=== PATIENT | male | born 1930 | race Caucasian/White ===

== ENCOUNTER 2020-12-11 16:53 | Inpatient (IN) | payer MEDICARE, BC ==
[~2020-12-11 16:53] MED LIST: Iopamidol-370 76% 500 ML 1 ML ONE
[2020-12-11] MEDS ORDERED: Aspirin 300 MG Suppository ONE (17:01)
[2020-12-11 17:23] LABS: INR-International Normal Ratio 2.7; Prothrombin Time 29.4 sec (12.0-14.7)
[2020-12-11] MEDS ORDERED: Fentanyl 100 MCG/2 ML VIAL ONE (17:31)
--- NOTE | 2020-12-11 17:34 | RAD ---
PORTABLE CHEST: 12/11/20 HISTORY: Shortness of breath. Comparison 03/21/16 study. Heart size is within normal limits. There are atherosclerotic changes of the aorta. Lungs show chroni c change. No focal infiltrative process or signs of failure. Bones are diffusely demineralized. IMPRESSION: No active intrathoracic disease. POS: NAT
[2020-12-11 17:40] LABS: Bilirubin Negative (Negative); Blood, Urine Negative (Negative); Clarity Clear (Clear); Glucose, Urine (Dipstick) Normal (Negative); Ketone, Urine Negative (Negative); Leukocyte 75 Leu/uL (Negative); Nitrite Negative (Negative); Protein, Urine (Dipstick) 30 mg/dL (Neg-Trace); Specific Gravity, Urine 1.025 (1.002-1.036); Squamous Epithelial 0-3 HPF (0-3)
[2020-12-11 17:44] LABS: PTT Greater than 250.0 sec (22.9-36.1)
[2020-12-11 17:53] LABS: Calc. Creatinine Clearance 0 mL/min (70-130)
[2020-12-11 17:54] LABS: Bacteria/HPF 1+ HPF (None Seen)
[2020-12-11 18:06] LABS: CKMB 1.4 ng/mL (0-6.6)
--- NOTE | 2020-12-11 18:12 | CT ---
CT ANGIOGRAM THORAX WITH IV CONTRAST AND 3-D RECONSTRUCTIONS CLINICAL INDICATION: Right-sided chest pain/indigestion which started this morning. Abnormal EKG. COMPARISON: None FINDINGS: Pulmonary arteries: No filling defects are seen in the pulmonary arteries to suggest a pulmonary embo jasbir. Aorta: Not well opacified, the thoracic aorta is normal in caliber and tortuous. Vascular calcificati ons are seen in the thoracic aorta. Lungs: Biapical pleural parenchymal scarring is present which is partially calcified. Scattered linea r densities are seen posteriorly which may be related to atelectasis or scarring. There is a prominent pleural-based nodular density measuring 11 mm adjacent to the upper portion of t he major fissure in the right upper lobe. There are also a few mildly prominent pleural-based nodular densities along the major fissure further inferiorly largest measuring approximately 10 mm. A djacent reticulonodular densities are seen adjacent to the pleural-based nodular densities lower aspect of the major fissure. Exact etiology for these nodular densities is uncertain and short interv al follow-up is recommended. Small nodular density is seen along the left major fissure measuring 0.8 cm and may represent a small intrapleural lymph node. No pleural effusion is identified. Mediastinum: No enlarged mediastinal lymph nodes are seen by CT size criteria. Few small calcified me diastinal lymph nodes are present. Prominent coronary artery calcifications are visualized. Thyroid gland: Grossly normal in appearance. Osseous structures: Multilevel degenerative changes in the thoracic spine with vertebroplasty changes seen involving mid thoracic vertebral bodies. Mild wedge-shaped compression fractures are seen involving the T10, T12, and L1 vertebral bodies of indeterminate age, these fractures were probably p resent on radiographs in 2017. Chest wall: No abnormality visualized. Upper abdomen: Prominent vascular calcifications are seen in the region of the vascular structures in the upper abdomen. IMPRESSION: 1. Pleural-based nodular densities along the major fissure which cannot be characterized as a intrapl eural lymph nodes. Follow-up CT thorax in 4 months is recommended. 2. Scattered mildly prominent interstitial densities are seen posteriorly in the right lower lobe and lateral aspect of the right upper lobe which could relate to mild chronic lung changes, but infectious or inflammatory process is a possibility. 3. Mild chronic lung changes. 4. No CT evidence of a pulmonary embolus. 5. Prominent vascular calcifications. 6. Remote wedge-shaped compression fractures lower thoracic spine and involving the L1 vertebral body .
[2020-12-11] MEDS ORDERED: Azithromycin 500 MG VIAL ONE (19:01)
[2020-12-11 19:39] LABS: Chloride 104 mmol/L (98-107); Potassium 4.1 mmol/L (3.5-5.1)
[2020-12-11 19:40] LABS: Calcium 7.9 mg/dL (7.8-10.44)
--- NOTE | 2020-12-11 20:03 | PRG ---
DATE OF SERVICE: 12/11/2020 I spoke with friends, who are really functioning as Mr. Dixon's family and also have [id number]. The patient's friends discussed that Mr. Dixon has been going downhill the last few months, losing weight. He is in a fpc. He tried to go to assisted living, but he was unable do that and had to go back to the fpc. She indicates that the best options would be more comfort care. The patient is unable to really tell us about code status, right now is confused, disoriented, but the friends indicated that the code status would more likely be in line with the comfort care. She did not think that he would want chest compressions or intubation or aggressive care and in terms of that, we will try to treat him aggressively medically. Job ID: [id number]
[2020-12-11 20:10] LABS: Sodium 135 mmol/L (136-145)
[2020-12-11 20:11] LABS: Anion Gap 13 mmol/L (10-20); BUN (Urea Nitrogen) 23 mg/dL (8.4-25.7); Carbon Dioxide 22 mmol/L (23-31)
[2020-12-11 20:13] LABS: Bilirubin, Total 0.6 mg/dL (0.2-1.2); Glucose 112 mg/dL (83-110)
[2020-12-11 20:14] LABS: Protein, Total 5.9 g/dL (5.8-8.1)
[2020-12-11 20:15] LABS: Albumin 2.8 g/dL (3.4-4.8)
[2020-12-11 20:16] LABS: Globulin 3.1 g/dL (2.4-3.5)
[2020-12-11 20:17] LABS: ALT (SGPT) 36 U/L (8-55); AST (SGOT) 41 U/L (5-34); Alkaline Phosphatase 72 U/L (40-110); Lipase 127 U/L (8-78)
[2020-12-11] MEDS ORDERED: traMADol HCl 50 MG TAB PO PRN (21:12)
--- NOTE | 2020-12-11 21:16 | PDOC.HHP ---
Hospitalist HPI chest pain History of Present Illness: This is an 89-year-old male patient with a history of dementia, falls, back pa in, coronary disease status post stent GERD and stroke who was transferred from his custodial this afternoon account of chest pain. Patient was also recently independent at home however he had a recent fall requiring back surgery and due to inability to stay independently was moved to a custodial after. [facility]. In the custodial today he complained of chest pain as a result of which EMS was activated. EMS noted he had a large anterior and posterior MT status contacted ED and [facility] was activated. He was started on heparin drip route however on presentation chest pain had resolved and was relatively stable. Cardiology was consulted and was reevaluated. Noted his EKG showed reperfusion and plan was to continue on medical management. He was not sent for [facility]. On discussion with his familyadopted family, patient and family agree that no heroic measures will be taken and he would be DNR. At the time of my evaluation patient was comfortable in bed noted he had pain earlier but denied any other movement. He denied any shortness of breath palpitations or weakness. His initial labs did show hemoglobin of 7 however this was thought to be wrong. Repeat labs showed hemoglobin of 14.4, WBC 13.3 and platelets of 436. Chemistry showed sodium of 135, bicarb 22, creatinine 0.63, glucose 112 and troponin of 0.165. His BNP was 248. Chest x-ray showed no acute intrathoracic event. CT a showed pleural-based nodular densities with repeat CT recommended in 4 months. Findings were generally of chronic lung changes with no evidence of PE noted. In the ED received azithromycin aspirin 300 mg rectally and heparin. Hospitalist team was consulted to admit Allergies/Adverse Reactions: Allergy/AdvReac Type Severity Reaction Status Date / Time cephalexin Allergy Verified 01/28/20 01:52 latex Allergy Verified 01/28/20 01:52 levofloxacin [From Levaquin] Allergy Verified 01/28/20 01:52 Penicillins Allergy Verified 01/28/20 01:52 Gwnfwbz-Uhy-Aqy Reductase Allergy Verified 12/12/20 03:10 Inhibitor tramadol Allergy Verified 12/12/20 02:38 Home Medications: Medication Instructions Recorded Confirmed Type Acetaminophen W/ Codeine 1 tab PO Q4H PRN 12/12/20 12/12/20 History [Acetaminophen/Codeine #3] Ascorbic Acid [Vitamin C] 1 tab PO DAILY 12/12/20 12/12/20 History Cholecalciferol [Vitamin D3] 1 cap PO DAILY 12/12/20 12/12/20 History Cyanocobalamin (Vitamin B-12) 2 tab PO DAILY 12/12/20 12/12/20 History [B-12] Docusate [Colace] 1 cap PO DAILY 12/12/20 12/12/20 History Lactobacillus [Floranex] 1 tab PO DAILY 12/12/20 12/12/20 History Omeprazole 20 mg PO DAILY 12/12/20 12/12/20 History Vitamin E 400 units PO DAILY 12/12/20 12/12/20 History tiZANidine HCl [Tizanidine HCl] 4 mg PO Q6HR PRN 12/12/20 12/12/20 History Past History: PMHx:dementia, falls, back pain, coronary disease status post stent GERD and stroke PSHx:Bardiac stent, back surgery FHx:None of significance Social:Leaves in nursing facility, no smoking, alcohol or drug history Hospitalist HPI ROS Constitutional: denies: fever, chills, sweats Respiratory: denies: cough, shortness of breath, hemoptysis, SOB with excertion Cardiovascular: reports: chest pain. denies: palpitations, orthopnea Gastrointestinal: denies: nausea (Since resolved), vomiting, abdominal pain Musculoskeletal: reports: back pain, leg pain. denies: neck pain, shoulder pain Neurological: denies: weakness, numbness, incoordination All other systems reviewed; all pertinent +/- noted in HPI/Subj Hospitalist Exam General Appearance: awake alert Eye: PERRL, anicteric sclera Heart: RRR, no murmur, no gallops, no rubs Respiratory: CTAB, no wheezes, no rales, no ronchi Extremities: no cyanosis, no clubbing, no edema Neurological: cranial nerve grossly intact, no focal deficits Psychiatric: normal affect, A&O x 3 Psychiatric - other findings: Sometimes slightly disoriented however Hospitalist Results Result Diagrams: 12/14/20 02:53 12/14/20 02:53 Lab results: Laboratory Last Values WBC 5.2 thou/uL (4.8-10.8) 12/11/20 17:04 RBC 2.17 mill/uL (4.70-6.10) L 12/11/20 17:04 Hgb 7.0 g/dL (14.0-18.0) L 12/11/20 17:04 Hct 21.2 % (42.0-52.0) L 12/11/20 17:04 MCV 98.0 fL (78.0-98.0) 12/11/20 17:04 MCH 32.3 pg (27.0-31.0) H 12/11/20 17:04 MCHC 32.9 g/dL (32.0-36.0) 12/11/20 17:04 RDW 13.0 % (11.5-14.5) 12/11/20 17:04 Plt Count 243 thou/uL (130-400) 12/11/20 17:04 MPV 7.4 fL (7.4-10.4) 12/11/20 17:04 Neutrophils % 67.5 % (42.0-75.0) 12/11/20 17:04 Lymphocytes % 21.2 % (21.0-51.0) 12/11/20 17:04 Monocytes % 9.8 % (0.0-10.0) 12/11/20 17:04 Eosinophils % 1.2 % (0.0-10.0) 12/11/20 17:04 Basophils % 0.3 % (0.0-1.0) 12/11/20 17:04 Neutrophils # 3.5 thou/uL (1.40-6.50) 12/11/20 17:04 Lymphocytes # 1.1 thou/uL (1.20-3.40) L 12/11/20 17:04 Monocytes # 0.5 thou/uL (0.11-0.59) 12/11/20 17:04 Eosinophils # 0.1 thou/uL (0.0-0.7) 12/11/20 17:04 Basophils # 0.0 thou/uL (0.0-0.2) 12/11/20 17:04 PT 29.4 sec (12.0-14.7) H 12/11/20 17:04 INR 2.7 12/11/20 17:04 APTT Greater than 250.0 sec (22.9-36.1) H* 12/11/20 17:04 Sodium 135 mmol/L (136-145) L 12/11/20 17:04 Potassium 4.1 mmol/L (3.5-5.1) 12/11/20 17:04 Chloride 104 mmol/L (98-107) 12/11/20 17:04 Carbon Dioxide 22 mmol/L (23-31) L 12/11/20 17:04 Anion Gap 13 mmol/L (10-20) 12/11/20 17:04 BUN 23 mg/dL (8.4-25.7) 12/11/20 17:04 Creatinine 0.63 mg/dL (0.7-1.3) L 12/11/20 17:04 Estimated GFR (MDRD) Greater than 90 12/11/20 17:04 Glucose 112 mg/dL (83-110) H 12/11/20 17:04 Calcium 7.9 mg/dL (7.8-10.44) 12/11/20 17:04 Total Bilirubin 0.6 mg/dL (0.2-1.2) 12/11/20 17:04 AST 41 U/L (5-34) H 12/11/20 17:04 ALT 36 U/L (8-55) 12/11/20 17:04 Alkaline Phosphatase 72 U/L (40-110) 12/11/20 17:04 CK-MB (CK-2) 1.4 ng/mL (0-6.6) 12/11/20 17:04 Troponin I 0.165 ng/mL (< 0.028) H 12/11/20 17:04 B-Natriuretic Peptide 44.9 pg/mL (0-100) 12/11/20 17:04 Serum Total Protein 5.9 g/dL (5.8-8.1) 12/11/20 17:04 Albumin 2.8 g/dL (3.4-4.8) L 12/11/20 17:04 Globulin 3.1 g/dL (2.4-3.5) 12/11/20 17:04 Albumin/Globulin Ratio 0.9 g/dL (1.2-2.2) L 12/11/20 17:04 Lipase 127 U/L (8-78) H 12/11/20 17:04 TSH 3rd Generation 1.2399 uIU/mL (0.35-4.94) 12/11/20 17:04 Urine Color Yellow (Yellow) 12/11/20 17:14 Urine Clarity Clear (Clear) 12/11/20 17:14 Urine pH 6.0 (5.0-9.0) 12/11/20 17:14 Ur Specific [place] 1.025 (1.002-1.036) 12/11/20 17:14 Urine Protein 30 mg/dL (Neg-Trace) A 12/11/20 17:14 Urine Glucose (UA) Normal mg/dL (Negative) 12/11/20 17:14 Urine Ketones Negative mg/dL (Negative) 12/11/20 17:14 Urine Blood Negative (Negative) 12/11/20 17:14 Urine Nitrite Negative (Negative) 12/11/20 17:14 Urine Bilirubin Negative (Negative) 12/11/20 17:14 Urine Urobilinogen 2.0 mg/dL (Less than 2) A 12/11/20 17:14 Ur Leukocyte Esterase 75 Emma/uL (Negative) A 12/11/20 17:14 Urine RBC 4-6 HPF (0-3) A 12/11/20 17:14 Urine WBC 7-10 HPF (0-3) A 12/11/20 17:14 Ur Squamous Epith Cells 0-3 HPF (0-3) 12/11/20 17:14 Urine Bacteria 1+ HPF (None Seen) A 12/11/20 17:14 Hyaline Casts 4-6 LPF (0-3) A 12/11/20 17:14 Blood Type B POSITIVE 12/11/20 18:14 Antibody Screen NEGATIVE 12/11/20 18:05 Crossmatch See Detail 12/11/20 18:05 Hospitalist H&P A/P Plan: This is an 89-year-old male patient with a history of coronary artery disease, chronic low back pain who presents with chest pain diagnostic of MT. STEMI Continue on heparin Received aspirinwe will continue Monitoring telemetry Cardiology following -Chronic back pain s/p recent back surgery Current medications PT Dementia Chronic debility Patient has chronic health problems including dementia Have PT evaluate CODE STATUSDNR DVT prophylaxistherapeutic level
[2020-12-11 22:20] LABS: #Eosinphils 0.1 thou/uL (0.0-0.7); #Lymphocytes 0.9 thou/uL (1.20-3.40); #Monocytes 0.9 thou/uL (0.11-0.59); #Neutrophils 11.4 thou/uL (1.40-6.50); %Basophils 0.2 % (0.0-1.0); %Eosinophils 0.8 % (0.0-10.0); %Monocytes 6.4 % (0.0-10.0); %Neutrophils 85.6 % (42.0-75.0); Hemoglobin 14.4 g/dL (14.0-18.0); Mean Corpuscular HGB CONC 33.2 g/dL (32.0-36.0); Mean Corpuscular Hemoglobin 32.7 pg (27.0-31.0); Mean Corpuscular Volume 98.5 fL (78.0-98.0); Mean Platelet Volume 7.8 fL (7.4-10.4); Platelet Count 463 thou/uL (130-400); RBC Distribution Width 13.4 % (11.5-14.5); White Blood Cell (WBC) Count 13.3 thou/uL (4.8-10.8)
[2020-12-11 22:50] LABS: INR-International Normal Ratio 1.1; Prothrombin Time 14.6 sec (12.0-14.7)
[2020-12-11 22:55] LABS: PTT 157.9 sec (22.9-36.1)
[2020-12-11] MEDS ORDERED: EPINEPHrine 1 MG/10 ML Abboject SYRINGE ONE (23:17)
[2020-12-11 23:30] LABS: CKMB 12.3 ng/mL (0-6.6)
--- NOTE | 2020-12-12 00:42 | CON ---
DATE OF CONSULTATION: 12/11/2020 REASON FOR CONSULTATION: Acute myocardial infarction. HISTORY OF PRESENT ILLNESS: Mr. Dixon is an 89-year-old gentleman. He was brought from a local halfway. The patient apparently was recently diagnosed with COVID near the end of last month by one verbal report, it was from the and today is the 11 of December. The patient was found to be having an acute myocardial infarction and was brought to this institution. The initial EKG showed severe ST-elevation. He was given heparin intravenously. The ST segments have gone back to baseline after he received heparin. The patient is not having chest pain now. This "hurts all over." The past history is obtained mostly from the medical records. He is unable to give me much history. He says he just hurts all over. The previous notes indicate that he does have coronary artery disease with a stent placed in 2010. The details of that are not available. Also has a history of "small stroke". His overall health is unknown to me. There is also a history of a compression fracture. He was recently in the emergency room with urinary tract infection, which was treated. Medications at this point are not known. SOCIAL HISTORY: The patient tells me he does not have any family, "he is a [place] war that is all he tells me." ALLERGIES: TO CEPHALEXIN, LATEX, LEVOFLOXACIN, AND PENICILLIN. PHYSICAL EXAMINATION: GENERAL: This is a really very underweight, cachectic appearing gentleman, looks chronically ill. VITAL SIGNS: His blood pressure was in the 100 systolic range. His pulse in the 80s. NECK: Veins are not distended. LUNGS: Clear anteriorly, laterally. CARDIAC: I do not hear murmur, rub, or gallop. ABDOMEN: Underweight. EXTREMITIES: Warm and dry. There is no clubbing, cyanosis, or edema. He does have femoral pulses. PERTINENT LABORATORY DATA: His hemoglobin is 7, it was recently 16 just a few days ago. EKG showed ST-elevation initially in inferior murillo with ST-depression in the anterior murillo compatible with a large infarction. Follow up EKG shows marked improvement in the ST segments. ASSESSMENT: 1. Acute myocardial infarction, it appears likely that he reperfused with heparin. 2. Severe anemia. 3. Recent COVID infection. 4. Appears cachectic, appears chronically ill. PLAN: During this dictation actually it has just been texted if there is a family available, can get further guidance about code status. He is on heparin. He will receive packed red blood cells. Prognosis guarded to poor in this unfortunate elderly gentleman with multiple medical problems. Job ID: [id number]
[2020-12-12 02:08] VITALS: BMI 14.9
[2020-12-12 02:21] LABS: #Eosinphils 0.1 thou/uL (0.0-0.7); #Lymphocytes 1.6 thou/uL (1.20-3.40); #Monocytes 0.8 thou/uL (0.11-0.59); #Neutrophils 6.9 thou/uL (1.40-6.50); %Basophils 0.3 % (0.0-1.0); %Eosinophils 0.7 % (0.0-10.0); %Monocytes 8.8 % (0.0-10.0); %Neutrophils 73.2 % (42.0-75.0); Mean Corpuscular HGB CONC 33.3 g/dL (32.0-36.0); Mean Corpuscular Hemoglobin 32.1 pg (27.0-31.0); Mean Corpuscular Volume 96.3 fL (78.0-98.0); Mean Platelet Volume 7.4 fL (7.4-10.4); Platelet Count 503 thou/uL (130-400); RBC Distribution Width 13.4 % (11.5-14.5); Red Blood Cell (RBC) Count 4.68 mill/uL (4.70-6.10); White Blood Cell (WBC) Count 9.5 thou/uL (4.8-10.8)
[2020-12-12] MEDS ORDERED: Heparin 10,000 UNITS/ 10 ML VIAL SLOW IVP SCH (02:45)
[2020-12-12] MEDS ORDERED: Heparin 25,000 units/D5W 500 ML IVPB SCH (02:45)
[2020-12-12 03:02] LABS: Anion Gap 14 mmol/L (10-20); BUN (Urea Nitrogen) 20 mg/dL (8.4-25.7); Calc. Creatinine Clearance 65 mL/min (70-130); Calcium 8.6 mg/dL (7.8-10.44); Carbon Dioxide 23 mmol/L (23-31); Chloride 104 mmol/L (98-107); Glucose 99 mg/dL (83-110); Potassium 3.9 mmol/L (3.5-5.1); Sodium 137 mmol/L (136-145)
[2020-12-12] MEDS ORDERED: Acetaminophen 325 MG TAB PO PRN (03:08)
[2020-12-12 06:38] LABS: SARS-CoV-2 PCR by NAA DETECTED (NotDetected)
[2020-12-12] MEDS: Aspirin 81 mg Enteric Coated Tablet PO SCH (08:16)
[2020-12-12] MEDS ORDERED: Clopidogrel Bisulfate 300 MG TAB PO SCH (09:00)
[2020-12-12] MEDS: Enoxaparin Sodium 60 MG/0.6 ML SYRINGE SC SCH ×2 (09:40→20:14)
[2020-12-12] MEDS: Famotidine 20 MG TAB PO SCH ×2 (09:40→20:15)
--- NOTE | 2020-12-12 11:42 | PQF ---
CLINICAL DOCUMENTATION CLARIFICATION FORM: Dear Dr. LEI FLORES Date: 12-12-20 Please exercise your independent, professional judgment in responding to the clarification form. Clinical indicators are provided on the bottom of this form for your review. Please check appropriate box(es): [X ] Protein Calorie Malnutrition: [ ] Mild [ X ] Moderate [ ] Severe [ ] Other Malnutrition (please specify) [ ] Other diagnosis [ ] Unable to determine In addition, please specify: Present on Admission (POA): [ X] Yes [ ] No [ ] Unable to determine For continuity of documentation, please document condition throughout progress notes and discharge summary. Thank You. To be completed by CDI/Coding staff for physician review: CLINICAL INDICATORS - SIGNS / SYMPTOMS / LABS / RESULTS AND LOCATION IN MR: CONSULT NOTE DR. JOY 12-11-20: HAS BEEN [facility] THE LAST FEW MONTHS, LOSING WEIGHT. HE IS IN A [facility] CONSULT NOTE DR. JOY 12-11-20: ACUTE PA, SEVERE ANEMIA, RECENT COVID INFECTION, APPEARS CACHECTIC, APPEARS CHRONICALLY ILL. JR. SYSTEMS ADMINISTRATOR CONSULT 12-12-20: Patient is COVID+. Ns home resident with dementia, and A&Ox3. Per admit records, noted 10% weight loss in 4 years. No recent wt hx documented to compare. JR. SYSTEMS ADMINISTRATOR CONSULT 12-12-20: BMI: 14.9 RISK FACTORS / RESULTS AND LOCATION IN MR: CONSULT NOTE DR. JOY 12-11-20: HAS BEEN [facility] THE LAST FEW MONTHS, LOSING WEIGHT. HE IS IN A [facility] TREATMENT / RESULTS AND LOCATION IN MR: JR. SYSTEMS ADMINISTRATOR CONSULT 12-12-20: 1. 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 2. Recommend Ensure Enlive TID. 3. Monitor labs and electrolytes. Moderate Malnutrition (in acute illness) Energy Intake: <75% of estimated energy requirement for > 7 days Weight Loss: 1-2%/1 week; 5%/ 1 month; 7.5%/3 months Other: mild body fat loss; mild muscle mass loss; mild fluid accumulation; Severe Malnutrition (in acute illness) Energy Intake: = 50% of estimated energy requirement for = 5 days Weight Loss: >2%/1 week; >5%/1 month; >7.5%/3 months Other: moderate body fat loss; moderate muscle mass loss; moderate- severe fluid accumulation; measurably reduced manager branch strength Moderate Malnutrition (in chronic illness) Energy Intake: <75% of estimated energy requirement for =1 month Weight Loss: 5%/1 month; 7.5%/3 months; 10%/6 months; 20%/1 year Other: mild body fat loss; mild muscle mass loss; mild fluid accumulation Severe Malnutrition (in chronic illness) Energy Intake: =75% of estimated energy requirement for =1 month Weight Loss: >5%/1 month; >7.5%/3 months; >10%/6 months; >20%/1 year Other: severe body fat loss; severe muscle mass loss; severe fluid accumulation; measurably reduced manager branch strength CDS Signature: Criss De La Torre Phone #: [phone] Date: 12-12-20 This is a permanent part of the Medical Record [facility]
--- NOTE | 2020-12-12 14:00 | PDOC.HOSPP ---
- Subjective Encounter Date: 12/12/20 Encounter Time: 13:58 Subjective: Mr. Dixon was seen today in follow-up of NSTEMI. He does not have any complaints. He denies chest pain or trouble breathing. He says he just wants to get out of this hospital and be with family. - Objective Vital Signs & Weight: Vital Signs (12 hours) Temp Pulse Resp BP Pulse Ox 12/12/20 12:15 96.7 F L 69 18 112/57 L 100 12/12/20 08:20 97.8 F 76 16 139/70 100 12/12/20 08:16 100 12/12/20 04:00 98.3 F 62 16 142/70 H 100 Weight Admit Weight 113 lb Weight 113 lb Result Diagrams: 12/12/20 02:11 12/12/20 02:11 Hospitalist ROS - Medication Medications: Active Medications Generic Name Dose Route Start Last Admin Trade Name Freq PRN Reason Stop Dose Admin Aspirin 81 mg 12/12/20 09:00 12/12/20 08:16 Aspirin 81 Mg Enteric Coated Tablet PO 81 mg DAILY GEOFFREY Administration Enoxaparin Sodium 50 mg 12/12/20 09:00 12/12/20 09:40 Enoxaparin Sodium 60 Mg/0.6 Ml Syringe SC 50 mg 0900,2100 GEOFFREY Administration Famotidine 20 mg 12/12/20 09:00 12/12/20 09:40 Famotidine 20 Mg Tab PO 20 mg BID GEOFFREY Administration Hospitalist Exam Vitals: Vital Signs (12 hours) Temp Pulse Resp BP Pulse Ox 12/12/20 12:15 96.7 F L 69 18 112/57 L 100 12/12/20 08:20 97.8 F 76 16 139/70 100 12/12/20 08:16 100 12/12/20 04:00 98.3 F 62 16 142/70 H 100 Weight Admit Weight 113 lb Weight 113 lb General Appearance: NAD General - other findings: very thin and frail in appearance Eye: PERRL, anicteric sclera Heart: RRR, no murmur, no gallops, no rubs, normal peripheral pulses Respiratory: CTAB, no wheezes, no rales, no ronchi, normal chest expansion, no tachypnea, normal percussion Gastrointestinal: soft, non-tender, non-distended, normal bowel sounds, no palpable masses Extremities: no cyanosis, no edema Hosp A/P (1) NSTEMI (non-ST elevated myocardial infarction) Code(s): I21.4 - NON-ST ELEVATION (NSTEMI) MYOCARDIAL INFARCTION Status: Acute (2) CAD (coronary artery disease) Code(s): I25.10 - ATHSCL HEART DISEASE OF [place] CORONARY ARTERY W/O ANG PCTRS Status: Chronic (3) Compression fracture of vertebra Code(s): M48.50XA - COLLAPSED VERTEBRA, NEC, SITE UNSP, INIT Status: Chronic (4) Physical deconditioning Code(s): R53.81 - OTHER MALAISE Status: Chronic - Plan * NSTEMI and CAD- agree with conservative management, given his advanced age and frail status * Continue Plavix aspirin Heparin , and consider adding a beta-arthur * Chronic back pain- from vertebral fractures- continue conservative management * Palliative Care Consult
[2020-12-12] MEDS: Carvedilol 3.125 MG TAB PO SCH (18:03)
[2020-12-12] MEDS ORDERED: Atorvastatin Calcium 10 MG TAB PO SCH (21:00)
[2020-12-13] MEDS: Enoxaparin Sodium 60 MG/0.6 ML SYRINGE SC SCH ×2 (07:58→20:24)
[2020-12-13] MEDS: Carvedilol 3.125 MG TAB PO SCH ×2 (07:58→16:11)
[2020-12-13] MEDS: Clopidogrel Bisulfate 75 MG TAB PO SCH (07:59)
[2020-12-13] MEDS: Famotidine 20 MG TAB PO SCH ×2 (07:59→20:24)
[2020-12-13] MEDS: Aspirin 81 mg Enteric Coated Tablet PO SCH (07:59)
--- NOTE | 2020-12-13 11:20 | PDOC.HOSPP ---
- Subjective Encounter Date: 12/13/20 Subjective: seems to be doing well, he was working with PT. - Objective Vital Signs & Weight: Vital Signs (12 hours) Temp Pulse Resp BP Pulse Ox 12/13/20 08:00 96.5 F L 71 19 167/81 H 97 12/13/20 03:54 97.6 F 66 14 141/73 H 100 12/13/20 00:00 97.1 F L 70 16 136/61 97 Weight Admit Weight 113 lb Weight 113 lb I&O: 12/12/20 12/13/20 12/14/20 06:59 06:59 06:59 Intake Total 540 Output Total 1125 Balance -585 Result Diagrams: 12/12/20 02:11 12/12/20 02:11 Hospitalist ROS - Medication Medications: Active Medications Generic Name Dose Route Start Last Admin Trade Name Freq PRN Reason Stop Dose Admin Aspirin 81 mg 12/12/20 09:00 12/13/20 07:59 Aspirin 81 Mg Enteric Coated Tablet PO 81 mg DAILY GEOFFREY Administration Carvedilol 1.56 mg 12/12/20 17:00 12/13/20 07:58 Carvedilol 3.125 Mg Tab PO 1.56 mg BID-WM GEOFFREY Administration Clopidogrel Bisulfate 75 mg 12/13/20 09:00 12/13/20 07:59 Clopidogrel Bisulfate 75 Mg Tab PO 75 mg DAILY GEOFFREY Administration Enoxaparin Sodium 50 mg 12/12/20 09:00 12/13/20 07:58 Enoxaparin Sodium 60 Mg/0.6 Ml Syringe SC 50 mg 0900,2100 GEOFFREY Administration Famotidine 20 mg 12/12/20 09:00 12/13/20 07:59 Famotidine 20 Mg Tab PO 20 mg BID GEOFFREY Administration Hospitalist Exam Vitals: Vital Signs (12 hours) Temp Pulse Resp BP Pulse Ox 12/13/20 08:00 96.5 F L 71 19 167/81 H 97 12/13/20 03:54 97.6 F 66 14 141/73 H 100 12/13/20 00:00 97.1 F L 70 16 136/61 97 Weight Admit Weight 113 lb Weight 113 lb General Appearance: NAD Eye: PERRL ENT: normocephalic atraumatic, no oropharyngeal lesions Neck: supple, symmetric, no JVD Heart: RRR, no murmur, no gallops Respiratory: CTAB, no wheezes, no rales, no ronchi Extremities: no cyanosis Skin: normal turgor Hosp A/P (1) NSTEMI (non-ST elevated myocardial infarction) Code(s): I21.4 - NON-ST ELEVATION (NSTEMI) MYOCARDIAL INFARCTION Status: Acute (2) CAD (coronary artery disease) Code(s): I25.10 - ATHSCL HEART DISEASE OF [place] CORONARY ARTERY W/O ANG PCTRS Status: Chronic (3) Compression fracture of vertebra Code(s): M48.50XA - COLLAPSED VERTEBRA, NEC, SITE UNSP, INIT Status: Chronic (4) Physical deconditioning Code(s): R53.81 - OTHER MALAISE Status: Chronic - Plan plan for today 2/6 patient seemed to be doing better, he is on Lovenox BID, coreg, ASA and Plavix. BP a bit up, I will keep on monitoring. we will continue to follow Cardiology recommendation.
--- NOTE | 2020-12-13 18:40 | EKG ---
Test Reason : Blood Pressure : / mmHG Vent. Rate : 073 BPM Atrial Rate : 073 BPM P-R Int : 150 ms QRS Dur : 090 ms QT Int : 422 ms P-R-T Axes : 036 021 072 degrees QTc Int : 464 ms Normal sinus rhythm Low voltage QRS Cannot rule out Anterior infarct , age undetermined Abnormal ECG Confirmed by JUANA ROSAS ([id number]), commissioning editor CAL LOPEZ ([id number]) on 12/13/2020 6:40:25 PM Referred By: Confirmed By:JUANA ROSAS
[2020-12-14 03:08] LABS: Hemoglobin 15.8 g/dL (14.0-18.0); Platelet Count 544 thou/uL (130-400)
[2020-12-14 03:09] LABS: #Basophils 0.1 thou/uL (0.0-0.2); #Eosinphils 0.2 thou/uL (0.0-0.7); #Lymphocytes 1.2 thou/uL (1.20-3.40); #Monocytes 0.9 thou/uL (0.11-0.59); #Neutrophils 4.4 thou/uL (1.40-6.50); %Eosinophils 3.4 % (0.0-10.0); %Lymphocytes 18.1 % (21.0-51.0); %Monocytes 12.8 % (0.0-10.0); %Neutrophils 64.7 % (42.0-75.0); Hemoglobin 15.5 g/dL (14.0-18.0); Mean Corpuscular HGB CONC 32.9 g/dL (32.0-36.0); Mean Corpuscular Hemoglobin 31.7 pg (27.0-31.0); Mean Corpuscular Volume 96.4 fL (78.0-98.0); Mean Platelet Volume 7.7 fL (7.4-10.4); Platelet Count 531 thou/uL (130-400); RBC Distribution Width 13.4 % (11.5-14.5); Red Blood Cell (RBC) Count 4.88 mill/uL (4.70-6.10); White Blood Cell (WBC) Count 6.8 thou/uL (4.8-10.8)
[2020-12-14 03:36] LABS: Anion Gap 11 mmol/L (10-20); BUN (Urea Nitrogen) 16 mg/dL (8.4-25.7); Calc. Creatinine Clearance 64 mL/min (70-130); Calcium 8.8 mg/dL (7.8-10.44); Carbon Dioxide 26 mmol/L (23-31); Chloride 103 mmol/L (98-107); Glucose 92 mg/dL (83-110); Potassium 4.7 mmol/L (3.5-5.1); Sodium 135 mmol/L (136-145)
[2020-12-14 03:43] LABS: Critical Call Chem Troponin I RESULT DECREASING; Troponin I 1.126 ng/mL (< 0.028)
[2020-12-14] MEDS: Famotidine 20 MG TAB PO SCH ×2 (09:44→20:33)
[2020-12-14] MEDS: Carvedilol 3.125 MG TAB PO SCH ×2 (09:44→18:42)
[2020-12-14] MEDS: Aspirin 81 mg Enteric Coated Tablet PO SCH (09:45)
[2020-12-14] MEDS: Enoxaparin Sodium 60 MG/0.6 ML SYRINGE SC SCH ×2 (09:45→20:33)
[2020-12-14] MEDS: Clopidogrel Bisulfate 75 MG TAB PO SCH (09:45)
--- NOTE | 2020-12-14 12:52 | PDOC.HOSPP ---
- Subjective Encounter Date: 12/14/20 Subjective: feels well - Objective Vital Signs & Weight: Vital Signs (12 hours) Temp Pulse Resp BP Pulse Ox 12/14/20 12:00 97.3 F L 80 18 138/78 96 12/14/20 07:54 95.9 F L 80 22 H 134/60 100 12/14/20 04:00 98.5 F 70 16 136/67 98 Weight Admit Weight 113 lb Weight 113 lb I&O: 12/13/20 12/14/20 12/15/20 06:59 06:59 06:59 Intake Total 540 540 Output Total 1125 450 Balance -585 90 Result Diagrams: 12/14/20 02:53 12/14/20 02:53 Hospitalist ROS - Medication Medications: Active Medications Generic Name Dose Route Start Last Admin Trade Name Freq PRN Reason Stop Dose Admin Aspirin 81 mg 12/12/20 09:00 12/14/20 09:45 Aspirin 81 Mg Enteric Coated Tablet PO 81 mg DAILY GEOFFREY Administration Carvedilol 1.56 mg 12/12/20 17:00 12/14/20 09:44 Carvedilol 3.125 Mg Tab PO 1.56 mg BID-WM GEOFFREY Administration Clopidogrel Bisulfate 75 mg 12/13/20 09:00 12/14/20 09:45 Clopidogrel Bisulfate 75 Mg Tab PO 75 mg DAILY GEOFFREY Administration Enoxaparin Sodium 50 mg 12/12/20 09:00 12/14/20 09:45 Enoxaparin Sodium 60 Mg/0.6 Ml Syringe SC 12/15/20 09:00 50 mg 0900,2100 GEOFFREY Administration Famotidine 20 mg 12/12/20 09:00 12/14/20 09:44 Famotidine 20 Mg Tab PO 20 mg BID GEOFFREY Administration Hospitalist Exam Vitals: Vital Signs (12 hours) Temp Pulse Resp BP Pulse Ox 12/14/20 12:00 97.3 F L 80 18 138/78 96 12/14/20 07:54 95.9 F L 80 22 H 134/60 100 12/14/20 04:00 98.5 F 70 16 136/67 98 Weight Admit Weight 113 lb Weight 113 lb General Appearance: NAD Eye: PERRL, anicteric sclera ENT: normocephalic atraumatic, no oropharyngeal lesions Neck: supple, symmetric, no JVD, no thyromegaly Heart: RRR, no murmur, no gallops, no rubs Respiratory: CTAB, no wheezes, no rales, no ronchi Gastrointestinal: soft, non-tender, non-distended Extremities: no cyanosis, no clubbing Hosp A/P (1) NSTEMI (non-ST elevated myocardial infarction) Code(s): I21.4 - NON-ST ELEVATION (NSTEMI) MYOCARDIAL INFARCTION Status: Acute (2) CAD (coronary artery disease) Code(s): I25.10 - ATHSCL HEART DISEASE OF [place] CORONARY ARTERY W/O ANG PCTRS Status: Chronic (3) Compression fracture of vertebra Code(s): M48.50XA - COLLAPSED VERTEBRA, NEC, SITE UNSP, INIT Status: Chronic (4) Physical deconditioning Code(s): R53.81 - OTHER MALAISE Status: Chronic - Plan plan for today 12/13 patient seemed to be doing better, he is on Lovenox BID, coreg, ASA and Plavix. BP a bit up, I will keep on monitoring. we will continue to follow Cardiology recommendation. plan for today 12/14 Patient seemed to be doing the same, I spoke with him about needing a heart cath but he seems to be in denial, I spoke with his MPOA and it seems that he does not want anything to be done and a referral for home hospice was initiated. When ready he will go with hospice.He probably will need to stay in isolation for another week approximately since he was diagnosed with Covid 19 on Dec 06. In am we can stop his Lovenox, and continue with Coreg and aspirin, and Plavix.
[2020-12-15] MEDS: Aspirin 81 mg Enteric Coated Tablet PO SCH (09:18)
[2020-12-15] MEDS: Carvedilol 3.125 MG TAB PO SCH ×2 (09:18→16:30)
[2020-12-15] MEDS: Famotidine 20 MG TAB PO SCH ×2 (09:19→21:00)
[2020-12-15] MEDS: Clopidogrel Bisulfate 75 MG TAB PO SCH (09:19)
[2020-12-15] MEDS: Enoxaparin Sodium 60 MG/0.6 ML SYRINGE SC SCH (09:19)
[2020-12-15 11:18] LABS: Anion Gap 10 mmol/L (10-20); BUN (Urea Nitrogen) 17 mg/dL (8.4-25.7); Calc. Creatinine Clearance 60 mL/min (70-130); Calcium 8.8 mg/dL (7.8-10.44); Carbon Dioxide 30 mmol/L (23-31); Chloride 101 mmol/L (98-107); Glucose 111 mg/dL (83-110); Potassium 3.6 mmol/L (3.5-5.1); Sodium 137 mmol/L (136-145)
--- NOTE | 2020-12-15 15:43 | PDOC.HOSPP ---
- Subjective Encounter Date: 12/15/20 Subjective: Well-appearing in no acute distress - Objective Vital Signs & Weight: Vital Signs (12 hours) Temp Pulse Resp BP Pulse Ox 12/15/20 13:00 97.6 F 89 17 94/54 L 100 12/15/20 09:00 97.3 F L 96 18 108/53 L 100 12/15/20 08:00 98 12/15/20 04:24 97.9 F 67 16 136/60 98 Weight Admit Weight 113 lb Weight 113 lb I&O: 12/14/20 12/15/20 12/16/20 06:59 06:59 06:59 Intake Total 540 120 Output Total 450 800 Balance 90 -680 Result Diagrams: 12/14/20 02:53 12/15/20 10:43 Hospitalist ROS - Medication Medications: Active Medications Generic Name Dose Route Start Last Admin Trade Name Freq PRN Reason Stop Dose Admin Aspirin 81 mg 12/12/20 09:00 12/15/20 09:18 Aspirin 81 Mg Enteric Coated Tablet PO 81 mg DAILY GEOFFREY Administration Carvedilol 3.125 mg 12/14/20 17:00 12/15/20 09:18 Carvedilol 3.125 Mg Tab PO 3.125 mg BID-WM GEOFFREY Administration Clopidogrel Bisulfate 75 mg 12/13/20 09:00 12/15/20 09:19 Clopidogrel Bisulfate 75 Mg Tab PO 75 mg DAILY GEOFFREY Administration Famotidine 20 mg 12/12/20 09:00 12/15/20 09:19 Famotidine 20 Mg Tab PO 20 mg BID GEOFFREY Administration Hospitalist Exam Vitals: Vital Signs (12 hours) Temp Pulse Resp BP Pulse Ox 12/15/20 13:00 97.6 F 89 17 94/54 L 100 12/15/20 09:00 97.3 F L 96 18 108/53 L 100 12/15/20 08:00 98 12/15/20 04:24 97.9 F 67 16 136/60 98 Weight Admit Weight 113 lb Weight 113 lb General Appearance: NAD Eye: PERRL ENT: normocephalic atraumatic Neck: supple, symmetric, no JVD Heart: RRR, no murmur, no gallops Respiratory: CTAB, no wheezes, no rales Gastrointestinal: soft, non-tender, non-distended Hosp A/P (1) NSTEMI (non-ST elevated myocardial infarction) Code(s): I21.4 - NON-ST ELEVATION (NSTEMI) MYOCARDIAL INFARCTION Status: Acute (2) CAD (coronary artery disease) Code(s): I25.10 - ATHSCL HEART DISEASE OF [place] CORONARY ARTERY W/O ANG PCTRS Status: Chronic (3) Compression fracture of vertebra Code(s): M48.50XA - COLLAPSED VERTEBRA, NEC, SITE UNSP, INIT Status: Chronic (4) Physical deconditioning Code(s): R53.81 - OTHER MALAISE Status: Chronic - Plan plan for today 12/13 patient seemed to be doing better, he is on Lovenox BID, coreg, ASA and Plavix. BP a bit up, I will keep on monitoring. we will continue to follow Cardiology recommendation. plan for today 12/14 Patient seemed to be doing the same, I spoke with him about needing a heart cath but he seems to be in denial, I spoke with his MPOA and it seems that he does not want anything to be done and a referral for home hospice was initiated. When ready he will go with hospice.He probably will need to stay in isolation for another week approximately since he was diagnosed with Covid 19 on Dec 06. In am we can stop his Lovenox, and continue with Coreg and aspirin, and Plavix. Plan for today 12/15 Patient will be going tomorrow with home hospice. For the past 24 hours his blood pressure has been on the low side, when I went to see him the cardiology nurse practitioner was talking to him and we had a discussion about adjustment of his blood pressure medication which she will do. Lovenox was stopped today, continue same management anticipating discharge t omorrow in the morning.
--- NOTE | 2020-12-15 15:52 | PDOC.CPN ---
- Subjective Date: 12/15/20 Time: 14:00 Interval history: No overnight events, patient sitting up in bed talking, just got out of the shower. He denies any chest pain or shortness of breath, his BP has been running on the low side. He denies any dizziness. - Review of Systems General: denies: fever/chills, weight/appetite/sleep changes, night sweats, fat igue Respiratory: denies: cough, congestion, shortness of breath, exercise intolerance Cardiovascular: denies: chest pain, palpitation, edema, paroxysmal nocturnal dyspnea, orthopnea Gastrointestinal: denies: nausea, vomiting, diarrhea, constipation, abd pain, GI bleeding Musculoskeletal: denies: pain, tenderness, stiffness, swelling, arthritis/arthralgias Neurological: denies: numbness, syncope, seizure, weakness - Objective Allergies/Adverse Reactions: Allergies Allergy/AdvReac Type Severity Reaction Status Date / Time cephalexin Allergy Verified 01/28/20 01:52 latex Allergy Verified 01/28/20 01:52 levofloxacin [From Levaquin] Allergy Verified 01/28/20 01:52 Penicillins Allergy Verified 01/28/20 01:52 Kvmjixo-Qyh-Aaj Reductase Allergy Verified 12/12/20 03:10 Inhibitor tramadol Allergy Verified 12/12/20 02:38 Visit Medications: Current Medications Acetaminophen (Acetaminophen 325 Mg Tab) 650 mg PO Q4H PRN PRN Reason: Headache/Fever or Pain Aspirin (Aspirin 81 Mg Enteric Coated Tablet) 81 mg PO DAILY [facility] Last Admin: 12/15/20 09:18 Dose: 81 mg Documented by: Carvedilol (Carvedilol 3.125 Mg Tab) 3.125 mg PO BID-[facility] Last Admin: 12/15/20 09:18 Dose: 3.125 mg Documented by: Clopidogrel Bisulfate (Clopidogrel Bisulfate 75 Mg Tab) 75 mg PO DAILY [facility] Last Admin: 12/15/20 09:19 Dose: 75 mg Documented by: Famotidine (Famotidine 20 Mg Tab) 20 mg PO BID [facility] Last Admin: 12/15/20 09:19 Dose: 20 mg Documented by: Vital Signs & Weight: Vital Signs Temp Pulse Resp BP Pulse Ox 12/15/20 13:00 97.6 F 89 17 94/54 L 100 12/15/20 09:00 97.3 F L 96 18 108/53 L 100 12/15/20 08:00 98 12/15/20 04:24 97.9 F 67 16 136/60 98 Admit Weight 113 lb Weight 113 lb - Physical Exam General: alert & oriented x3, appears well, no apparent distress Neck: no bruit Cardiac: regular rate and rhythm, no murmur Lungs: clear to auscultation, normal breath sounds, no wheeze, rales, rhonchi Neuro: grossly intact Abdomen: active bowel sounds, soft, non-tender Extremities: no cyanosis, no clubbing, no edema, 2+ Posterior Tibial, 2+ Dorsalis Pedus Skin: clear Musculoskeletal: normal range of motion, other (back pain, vertebral compression fracture) - Labs Result Diagrams: 12/14/20 02:53 12/15/20 10:43 Troponin/CKMB CK-MB (CK-2) 12.3 ng/mL (0-6.6) H* 12/11/20 22:08 Troponin I 1.126 ng/mL (< 0.028) H* 12/14/20 02:53 - EKG Interpretation EKG Method: Telemetry EKG: sinus rhythm - Assessment/Plan Assessment/Plan: 1. Acute myocardial infarction: reprofused with Heparin, patient declined LHC at this time 2. Coronary artery disease: he is on Aspirin, Plavix, and Coreg, will lower dose of Coreg due to hypotension 3. Vertebral compression fracture 4. Physical deconditioning: home with hospice tomorrow From a cardiac stanpoint, Mr. Dixon has declined heart catheterization at this time. Will continue with Aspirin, Plavix and Coreg, we will sign off at this time. He can follow-up as an outpatient in 4 weeks. Pt. seen and eval. by me. I agree with the A/P by the [employer]ED IN[employer]E PORTFOLIO MANAGER. I had a long discussion with him about a cardiac cath and he declines. I did tell him that if he returns with another episode like this then he really would need a cath. I will sign off, if any cardiac issues I will be happy to see him again. At this time I will sign off. juanito
[2020-12-16] MEDS: Aspirin 81 mg Enteric Coated Tablet PO SCH (09:11)
[2020-12-16] MEDS: Carvedilol 3.125 MG TAB PO SCH (09:11)
[2020-12-16] MEDS: Famotidine 20 MG TAB PO SCH (09:12)
[2020-12-16] MEDS: Clopidogrel Bisulfate 75 MG TAB PO SCH (09:12)
--- NOTE | 2020-12-16 09:45 | PDOC.DS.DS ---
Provider Date of Admission: 12/11/20 21:16 Date of Discharge: 12/16/20 Admitting Provider: Eren Whitney MD Consultations: Cardiology Primary Care Physician: AIDA HANNAH MD Course Hospital Course: This is an 89-year-old male patient with a history of dementia, falls, back pain, coronary disease status post stent GERD and stroke who was transferred from his detention this afternoon account of chest pain. Patient was also recently independent at home however he had a recent fall requiring back surgery and due to inability to stay independently was moved to a detention after[facility]. In the detention he complained of chest pain as a result of which EMS was activated. EMS noted he had a large anterior and posterior CT status contacted ED and Display Designer was activated. He was started on heparin drip route however on presentation chest pain had resolved and was relatively stable. Cardiology was consulted and was reevaluated. Noted his EKG showed reperfusion and plan was to continue on medical management. Patient serology was positive for COVID-19 but without any pulmonary symptoms. During his stay he was started on full dose Lovenox, Coreg, aspirin, Plavix. He was a bit hypotensive so Coreg was lowered, he was seen by cardiology and patient declined LHC, I had a long discussion with his medical power of tax associate attorney and since patient does not want any intervention it was best for him to go with home hospice. I will provide him with prescription for Coreg and Plavix. Resuscitation Status: 12/11/20 21:08 Resuscitation Status Routine Resuscitation Status: DNAR: NO Resuscitation Discussed with: Patient Lab Results: 12/14/20 02:53 12/15/20 10:43 Abnormal Lab Results - Last 48 hrs 12/15/20 10:43: Creatinine 0.61 L Microbiology - Entire Visit 12/11/20 17:14 Urine Straight Catheter Urine Culture - Final NO GROWTH AT 48 HOURS 12/11/20 18:50 Venous blood - Left Hand Blood Culture - Preliminary NO GROWTH AT 48 HOURS 12/11/20 18:50 Venous blood - Right Arm Blood Culture - Preliminary NO GROWTH AT 48 HOURS Vitals: Vital Signs (12 hours) Temp Pulse Resp BP Pulse Ox 12/16/20 04:22 97.2 F L 75 18 146/82 H 100 12/16/20 00:48 97.7 F 75 16 142/65 H 100 Weight Admit Weight 113 lb Weight 113 lb Physical Exam: The patient was seen and examined on the day of discharge. General Appearance: NAD, awake alert Eye: PERRL, anicteric sclera ENT: normocephalic atraumatic, no oropharyngeal lesions Neck: supple, symmetric, no JVD, no thyromegaly, no carotid bruit Respiratory: CTAB, no wheezes, no rales, no ronchi Cardiovascular: RRR, no murmur, no gallops, no rubs Gastrointestinal: soft, non-tender, non-distended, normal bowel sounds Extremities: no cyanosis, no clubbing Skin: normal turgor Neurological: cranial nerve grossly intact Problem (1) NSTEMI (non-ST elevated myocardial infarction) Code(s): I21.4 - NON-ST ELEVATION (NSTEMI) MYOCARDIAL INFARCTION Status: Acute (2) CAD (coronary artery disease) Code(s): I25.10 - ATHSCL HEART DISEASE OF [place] CORONARY ARTERY W/O ANG PCTRS Status: Chronic (3) Compression fracture of vertebra Code(s): M48.50XA - COLLAPSED VERTEBRA, NEC, SITE UNSP, INIT Status: Chronic (4) Physical deconditioning Code(s): R53.81 - OTHER MALAISE Status: Chronic Time Spent in discharge related activities (mins): 45 Plan Prescriptions: Carvedilol [Coreg] 1.5625 mg PO BID-WM 30 Days #60 tab Clopidogrel Bisulfate [Plavix] 75 mg PO DAILY 30 Days #30 tab Home Medications: Medication Instructions Recorded Confirmed Type Acetaminophen W/ Codeine 1 tab PO Q4H PRN 12/12/20 12/12/20 History [Acetaminophen/Codeine #3] Ascorbic Acid [Vitamin C] 1 tab PO DAILY 12/12/20 12/12/20 History Cholecalciferol [Vitamin D3] 1 cap PO DAILY 12/12/20 12/12/20 History Cyanocobalamin (Vitamin B-12) 2 tab PO DAILY 12/12/20 12/12/20 History [B-12] Docusate [Colace] 1 cap PO DAILY 12/12/20 12/12/20 History Lactobacillus [Floranex] 1 tab PO DAILY 12/12/20 12/12/20 History Omeprazole 20 mg PO DAILY 12/12/20 12/12/20 History Vitamin E 400 units PO DAILY 12/12/20 12/12/20 History tiZANidine HCl [Tizanidine HCl] 4 mg PO Q6HR PRN 12/12/20 12/12/20 History Aspirin [Ecotrin Low Strength] 81 mg PO DAILY tab 12/16/20 Rx Carvedilol [Coreg] 1.5625 mg PO BID-WM 30 Days #60 tab 12/16/20 Rx Clopidogrel Bisulfate [Plavix] 75 mg PO DAILY 30 Days #30 tab 12/16/20 Rx Allergies: cephalexin Allergy (Verified 01/28/20 01:52) latex Allergy (Verified 01/28/20 01:52) levofloxacin [From Levaquin] Allergy (Verified 01/28/20 01:52) Penicillins Allergy (Verified 01/28/20 01:52) Kbvimji-Gfv-Giq Reductase Inhibitor Allergy (Verified 12/12/20 03:10) tramadol Allergy (Verified 12/12/20 02:38) Activity:: Activity as Tolerated Referrals: AIDA HANNAH [Primary Care Provider] - Disposition: HOSPICE-HOME Quality CORE MEASURES:: AMI Did you prescribe antithrombotic therapy?: Yes Did you prescribe anticoagulant for A Fib/Flutter?: No Specify reason for no DC anticoagulant: Treatment not indicated Did you prescribe a statin medication?: No Specify reason for no DC statin medication: Statins not tolerated (Patient is allergic)
[2020-12-16 12:06] VITALS: TEMP 97.5
[2020-12-16 16:09] VITALS: BP 130/67
--- NOTE | 2020-12-16 16:15 | PDOC.FMACP ---
Advance Care Planning - Problem (1) Palliative care encounter Status: Acute Code(s): Z51.5 - ENCOUNTER FOR PALLIATIVE CARE (2) NSTEMI (non-ST elevated myocardial infarction) Status: Acute Code(s): I21.4 - NON-ST ELEVATION (NSTEMI) MYOCARDIAL INFARCTION (3) Weakness Status: Acute Code(s): R53.1 - WEAKNESS (4) Physical deconditioning Status: Chronic Code(s): R53.81 - OTHER [place]AISE - Note Participants: patient, family, palliative care Summary: Palliative care has addresed Advanced Care Planning. The diagnosis, prognosis and goals of care were discussed. Appropriate forms and documentation to accomplish the goals of care were discussed. All questions were answered. Confirmed DNAR Home with Hospice/Elected to transition to home setting with [facility]. Family to also overlay with paid caregivers as needed No further aggressive interventions/measures OOHDNAR will need to be completed with family through Hospice, they are aware.
--- NOTE | 2020-12-19 13:52 | EKG ---
Test Reason : Blood Pressure : / mmHG Vent. Rate : 066 BPM Atrial Rate : 066 BPM P-R Int : 146 ms QRS Dur : 098 ms QT Int : 426 ms P-R-T Axes : 030 -27 074 degrees QTc Int : 446 ms Normal sinus rhythm Low voltage QRS Inferior infarct , age undetermined T wave abnormality, consider lateral ischemia Abnormal ECG When compared with ECG of 11-DEC-2020 17:32, (Unconfirmed) No significant change was found Confirmed by DR. Lucita JOY ([id number]) on 12/19/2020 1:51:54 PM Referred By: BENITA Confirmed By:DR. Lucita JOY
== END 2020-12-16 16:26 | disposition hospice, home (50) | DRG 280 ==
LOC: ERS 16:53 → 2SE 21:16
PROVIDERS: ADMIT Student in an Organized Health Care Education/Training Program; ATTEND Internal Medicine
DX: I21.4 Non-ST elevation (NSTEMI) myocardial infarction (principal); U07.1 COVID-19; R64 Cachexia; Z68.1 Body mass index [BMI] 19.9 or less, adult; Z66 Do not resuscitate; Z51.5 Encounter for palliative care; E44.0 Moderate protein-calorie malnutrition; M48.50XA Collapsed vertebra, not elsewhere classified, site unspecified, initial encounter for fracture; F03.90 Unspecified dementia, unspecified severity, without behavioral disturbance, psychotic disturbance, mood disturbance, and anxiety; I25.10 Atherosclerotic heart disease of native coronary artery without angina pectoris; G89.29 Other chronic pain; K21.9 Gastro-esophageal reflux disease without esophagitis; R53.81 Other malaise; D64.9 Anemia, unspecified; M54.9 Dorsalgia, unspecified; Z95.1 Presence of aortocoronary bypass graft; Z91.81 History of falling; Z88.0 Allergy status to penicillin; Z88.1 Allergy status to other antibiotic agents; Z88.8 Allergy status to other drugs, medicaments and biological substances; Z91.040 Latex allergy status; Z86.73 Personal history of transient ischemic attack (TIA), and cerebral infarction without residual deficits
CPT/HCPCS: 36415; 51701; 71045; 71275; 80048; 80053; 81003; 81015; 82553; 83690; 83880; 84443; 84484; 85025; 85610; 85730; 86850; 86900; 86901; 87040; 87086; 87635; 93005; 93010; 96365; 96366; 96368; 96375; J0171; J0456; J1644; J1650; J3010; Q9967; U0003; U0005